=== PATIENT | male | born 1935 | race Caucasian/White ===

== ENCOUNTER 2019-05-17 18:02 | Inpatient (IN) | payer OTHER, MEDICAID ==
[~2019-05-17] VITALS: Ht 188 cm; Wt 62.1 kg
[2019-05-17 18:10] VITALS: BP_SYST 145
--- NOTE | 2019-05-17 18:27 | NUR ---
Patient to ER bed H2 to gown for evaluation. Side rails up.
--- NOTE | 2019-05-17 18:30 | NUR ---
Pt sent from [facility] for generalized weakness, pt is Dr Garcia patient, c/o bodyaches, skin pink and warm, cap refill <3, VSS , respirations even and unlabored, cap refill <3.
[2019-05-17 19:07] LABS: BASOPHILS % (AUTO) 0.6 % (0.0-2.0); EOSINOPHILS # (AUTO) 0.2 K/uL (0.0-0.4); EOSINOPHILS % (AUTO) 2.5 % (0.0-4.0); HEMATOCRIT 41.1 % (36-54); HEMOGLOBIN 13.8 g/dL (14.0-18.0); LYMPHOCYTES # (AUTO) 1.7 K/uL (1.0-5.5); LYMPHOCYTES % (AUTO) 22.9 % (20.5-51.5); MEAN CORPUSCULAR HEMOGLOBIN 30 pg (27-31); MEAN CORPUSCULAR HGB CONC 34 % (32-36); MEAN CORPUSCULAR VOLUME 90 fL (79.0-98.0); MONOCYTES # (AUTO) 0.5 K/uL (0.0-1.0); MONOCYTES % (AUTO) 6.9 % (1.7-9.3); NEUTROPHILS # (AUTO) 5.1 K/uL (1.8-7.7); NEUTROPHILS % (AUTO) 67.1 % (40.0-70.0); PLATELET COUNT (AUTO) 255 K/uL (130-430); RED BLOOD CELL COUNT(AUTO) 4.58 MIL/uL (4.2-6.2); RED CELL DISTRIBUTION WIDTH 15.1 % (9.0-15.0); WHITE BLOOD COUNT (AUTO) 7.5 K/uL (4.8-10.8)
[2019-05-17 19:11] LABS: ANION GAP 9 (5-15); CALCIUM 8.9 mg/dL (8.4-11.0); CHLORIDE 103 mmol/L (98-107); CREATININE 0.87 mg/dL (0.55-1.30); GLUCOSE 103 mg/dL (70-99); SODIUM SERUM 137 mmol/L (136-145); UREA NITROGEN, BLOOD 21 mg/dL (8-21)
[2019-05-17] MEDS ORDERED: NA P133E41 RC (19:11)
[2019-05-17] MEDS ORDERED: MELA3TAB64 PO (19:11)
[2019-05-17] MEDS ORDERED: DOCU-144 PO (19:11)
[2019-05-17] MEDS ORDERED: MOM PO (19:11)
[2019-05-17] MEDS ORDERED: LISI2.5T48 PO (19:11)
[2019-05-17] MEDS ORDERED: BISA10SU61 RC (19:11)
[2019-05-17] MEDS ORDERED: ACET-73 PO (19:11)
[2019-05-17] MEDS ORDERED: CYAN100T3 PO (19:11)
[2019-05-17] MEDS ORDERED: PEDI1TAB28 PO (19:11)
--- NOTE | 2019-05-17 19:11 | NUR ---
Medication reconciliation completed with information provided by patient . Any prior medication reconciliation on file was reviewed and corrected.
--- NOTE | 2019-05-17 19:14 | NUR ---
Report given to Arlen VELAZQUEZ
[2019-05-17 19:16] LABS: ALANINE AMINOTRANSFERASE 16 U/L (12-78); ALBUMIN 3.3 g/dL (3.4-4.8); ASPARTATE AMINOTRANSFERASE 15 U/L (10-37); TOTAL BILIRUBIN 0.5 mg/dL (0.0-1.0)
[2019-05-17 19:18] LABS: ALCOHOL, BLOOD < 3 mg/dL (<10)
--- NOTE | 2019-05-17 19:22 | NUR ---
Kristina Ross for straight catheter urine collection.
--- NOTE | 2019-05-17 19:35 | NUR ---
# 14 FR In and Out catheter with use of sterile technique. Immediate return of 30 ml dark yellow urine noted. Urine sample collected and sent to lab. Patient yelling, and agitated; attempting to bite. Rach Torres at bedside for assistance. Patient unable to toilet self, incontinent, unable to use urinal after 5 attempts and encouragement.
[2019-05-17 19:54] LABS: BILIRUBIN,URINE NEGATIVE (NEGATIVE); BLOOD, URINE 3+ (NEGATIVE); COLOR,URINE YELLOW (YELLOW); GLUCOSE,URINE NEGATIVE (NEGATIVE); KETONES,URINE NEGATIVE (NEGATIVE); LEUKOCYTE ESTERASE ,URINE NEGATIVE (NEGATIVE); NITRITE, URINE NEGATIVE (NEGATIVE); PH,URINE 6.5 (5.0-8.0); PROTEIN URINE 1+ (NEGATIVE); UROBILINOGEN,URINE 0.2 (0.2-1.0)
[2019-05-17 20:03] LABS: BARBITURATE, URINE NEGATIVE (NEG <=200); BENZODIAZEPINE, URINE NEGATIVE (NEG <=150); CANNABINOID, URINE NEGATIVE (NEG <=50); COCAINE, URINE NEGATIVE (NEG <=150); METHAMPHETAMINES SCREEN,URINE NEGATIVE (NEG <=500); OPIATE, URINE NEGATIVE (NEG <=100); PHENCYCLIDINE SCREEN,URINE NEGATIVE (NEG <=25); UR TRICYCLIC ANTIDEPRESSANTS NEGATIVE (NEG <=300); URINE AMPHETAMINE NEGATIVE (NEG <=500); URINE METHADONE NEGATIVE (NEG <=200); URINE OXYCODONE SCREEN NEGATIVE (NEG <=100); URINE PROPOXYPHENE SCREEN NEGATIVE (NEG <=300)
[2019-05-17 20:05] LABS: CLARITY/URINE HAZY (CLEAR)
[2019-05-17 20:06] LABS: BACTERIA,URINE FEW /HPF (None Seen); MUCUS,URINE None Seen /LPF (None Seen); RBC,URINE 20-50 /HPF (0-3); WBC,URINE 0-3 /HPF (0-3)
[2019-05-17] MEDS ORDERED: OLANZapine IntraMuscular 10 MG VIAL (FOR I.M. INJECTION ONLY) IM ONE (20:45)
--- NOTE | 2019-05-17 20:45 | NUR ---
Patient resting comfortably, shouting intermittently. Patient states he has no needs at this time. Will continue to follow up and monitor.
--- NOTE | 2019-05-17 21:28 | NUR ---
Orders received from Dr. Oliver, 121B, Report called to CAROLINE Jerome.
--- NOTE | 2019-05-17 21:30 | NUR ---
Patient will be admitted to care of Dr. Oliver. Admitted to MedSurg unit. Will go to room 121B. Belongings list completed. Summary report printed. Report will be given at bedside.
[2019-05-17] MEDS ORDERED: HALOPERIDOL LACTATE 5 MG/ML VIAL IM ONE (21:45)
[2019-05-17] MEDS ORDERED: HALOPERIDOL LACTATE 5 MG/ML VIAL ONE (21:55)
[2019-05-17 22:04] VITALS: BP_SYST 163
--- NOTE | 2019-05-17 22:04 | NUR ---
ADMISSION NOTE Received patient from ER via zachary, received telephone report from CAROLINE CRANE. Patient admitted with diagnosis of ENCEPHALOPATHY, DEHYDRATION. Patient oriented to hospital routine, call light, toileting and safety-patient verbalized understanding.
--- NOTE | 2019-05-17 22:30 | NUR ---
NOTES: took over care form nurse Queenie, admitted for generalized weakness from skilled facility. checked pt. able to communicate verbally, knows his name, reoriented where he is. moves all extremities, denies any pain nor discomfort, on room air. IV lock on rt. antecubital. checked skin intact except dry scabs on his chest, multiple areas. able to turn to sides. fall risk precautions, bed alarm on, call light within reach. pt. close to nurses station.
[2019-05-17] MEDS: D5NS 1,000 ML IV SCH (23:16)
--- NOTE | 2019-05-17 23:22 | NUR ---
NOTES: pt. was sleeping and got mad when lights were turn on, IVF started as ordered. Zyprexa im was given in ER per [facility] report. ptr. saying wants IV out. gauze kerlix around it for security. condition observed.
[2019-05-18 00:01] VITALS: BP_SYST 147
--- NOTE | 2019-05-18 00:30 | NUR ---
NOTES: pt. been bending his arm , IV keeps alarming. continue to monitor.
--- NOTE | 2019-05-18 03:30 | NUR ---
NOTES: pt. sleeping, no acute distress. IVF infusing. condition observed.
--- NOTE | 2019-05-18 05:27 | NUR ---
NOTES: pt. been sleeping, gets mad whenever awakened. IV alarming on and off since he is bending his arm. no acute distress. am lab draw as ordered.
--- NOTE | 2019-05-18 05:29 | NUR ---
CONSULTATION PAGED/CALLED Reason for Consultation: ACUTE AGITATION Person Who was Notified: TEE Consulting Physician: DR. FORDE; MANAGER GYN - DR. FLORENTINO Enameler Specialty: PSYCH Ordering Physician: DR. DUARTE
[2019-05-18 06:35] LABS: BASOPHILS % (AUTO) 0.5 % (0.0-2.0); EOSINOPHILS # (AUTO) 0.2 K/uL (0.0-0.4); EOSINOPHILS % (AUTO) 2.1 % (0.0-4.0); HEMATOCRIT 47.7 % (36-54); HEMOGLOBIN 15.9 g/dL (14.0-18.0); LYMPHOCYTES % (AUTO) 14.4 % (20.5-51.5); MEAN CORPUSCULAR HEMOGLOBIN 33 pg (27-31); MEAN CORPUSCULAR HGB CONC 33 % (32-36); MONOCYTES # (AUTO) 0.8 K/uL (0.0-1.0); MONOCYTES % (AUTO) 11.7 % (1.7-9.3); NEUTROPHILS % (AUTO) 71.3 % (40.0-70.0); PLATELET COUNT (AUTO) 109 K/uL (130-430); RED BLOOD CELL COUNT(AUTO) 4.82 MIL/uL (4.2-6.2); RED CELL DISTRIBUTION WIDTH 13.8 % (9.0-15.0); WHITE BLOOD COUNT (AUTO) 7.1 K/uL (4.8-10.8)
--- NOTE | 2019-05-18 06:45 | NUR ---
CLOSING NOTES; pt. still asleep. IV infusing, used urinal to void per D[employer]EL PLANT OPERATOR assistance. for further care and assistance. bed alarm on. fall risk precautions. call light within reach.
[2019-05-18 06:58] LABS: ALANINE AMINOTRANSFERASE 23 U/L (12-78); ALBUMIN 3.3 g/dL (3.4-4.8); ASPARTATE AMINOTRANSFERASE 31 U/L (10-37); CALCIUM 9.2 mg/dL (8.4-11.0); CHLORIDE 106 mmol/L (98-107); CREATININE 0.77 mg/dL (0.55-1.30); GLUCOSE 133 mg/dL (70-99); SODIUM SERUM 141 mmol/L (136-145); THYROID STIMULATING HORMONE 0.88 uIu/mL (0.36-3.74); TOTAL BILIRUBIN 1.3 mg/dL (0.0-1.0); UREA NITROGEN, BLOOD 18 mg/dL (8-21)
[2019-05-18 07:04] LABS: ANION GAP 11 (5-15)
[2019-05-18 07:31] LABS: MEAN CORPUSCULAR VOLUME 99 fL (79.0-98.0)
--- NOTE | 2019-05-18 07:33 | NUR ---
PATIENT IS RESTING, AROUSABLE, BUT CONFUSED. IV ON THE RIGHT FA, #20. PATIENT IS INSTRUCTED TO USE CALL LIGHT FOR NEEDS, BED LOCKED AT THE LOWEST POSITION WITH ALARM ON, WILL CONTINUE TO MONITOR.
--- NOTE | 2019-05-18 07:44 | NUR ---
Nutrition Update Cm Scale 15 noted. Pt admitted for Dehydration, Encephalopathy Diet: Mechanical Soft BMI: 17.6kg/m2 RD to follow per nutrition care standards.
[2019-05-18 08:00] VITALS: BP_SYST 142
[2019-05-18 08:28] LABS: CHOLESTEROL 121 mg/dL (<200); HDL CHOLESTEROL 37 mg/dL (>45); LDL CHOLESTEROL 78 mg/dL (<100); TRIGLYCERIDES 61 mg/dL (30-150)
[2019-05-18] MEDS ORDERED: OLANZapine 2.5 MG TABLET PO SCH (09:00)
--- NOTE | 2019-05-18 09:48 | NUR ---
Patient is resting, no signs of distress noted.
[2019-05-18] MEDS: D5NS 1,000 ML IV SCH (10:51)
[2019-05-18 11:06] VITALS: BP_SYST 128
--- NOTE | 2019-05-18 11:57 | NUR ---
IV site kinked at the right AC, as patient is unwilling to keep his arm straight. IV site started on Right FA, #22. Site intact and patent.
--- NOTE | 2019-05-18 12:50 | NUR ---
PATIENT FINISHES HIS LUNCH. TOLERATED WITHOUT DISTRESS.
--- NOTE | 2019-05-18 14:20 | NUR ---
Patient is turned and repositioned for comfort.
[2019-05-18 15:47] VITALS: BP_SYST 139
--- NOTE | 2019-05-18 16:40 | NUR ---
Patient is turned and repositioned for comfort.
--- NOTE | 2019-05-18 18:20 | NUR ---
Patient tolerates dinner without distress.
[2019-05-18 20:00] VITALS: BP_SYST 141
--- NOTE | 2019-05-18 20:00 | NUR ---
Initial note: Received report from nerissa RN. Patient is awake in bed, no acute distress. Alert and oriented to name only. IV site to right forearm is patent and benign, receiving IV fluids as ordered. Call light with patient. Bed locked in lowest position, side rails raised x3 with bed alarm on. Will continue with plan of care.
--- NOTE | 2019-05-18 23:11 | NUR ---
Rounds: Patient is awake, no acute distress. Even and unlabored breathing on room air. IV fluids infusing to right forearm IV site, no infiltration. Call light is with patient. Will continue to monitor.
[2019-05-19 00:18] VITALS: BP_SYST 150
[2019-05-19] MEDS: D5NS 1,000 ML IV SCH ×2 (00:22→14:14)
--- NOTE | 2019-05-19 02:24 | NUR ---
Rounds: Patient is resting in bed, no distress noted. Tolerating room air. IV fluids infusing as ordered, no infiltration noted. Call light with patient. Will continue monitoring.
--- NOTE | 2019-05-19 04:02 | NUR ---
Rounds: Patient is sleeping comfortably in bed. No acute distress. Even and unlabored respirations on room air. IV fluids infusing as ordered, no infiltration noted. Call light with patient. Will continue to monitor.
--- NOTE | 2019-05-19 06:36 | NUR ---
Closing note: Patient is resting in bed, no distress noted. Even and unlabored breathing on room air. IV site is patent and benign, receiving IV fluids as ordered. All needs met. Safety, fall precautions observed. Will endorse care to dayshift RN.
[2019-05-19 08:00] VITALS: BP_SYST 135
--- NOTE | 2019-05-19 08:00 | NUR ---
PATIENT IS RESTING, AROUSABLE, BUT CONFUSED. IV ON THE RIGHT FA, #20, AND RIGHT FA, #22. SL. PATIENT IS INSTRUCTED TO USE CALL LIGHT FOR NEEDS, BED LOCKED AT THE LOWEST POSITION WITH ALARM ON, WILL CONTINUE TO MONITOR.
[2019-05-19] MEDS ORDERED: LORazepam 1 MG TABLET PO PRN (08:15)
[2019-05-19] MEDS: OLANZapine 2.5 MG TABLET PO SCH ×2 (08:17→21:44)
--- NOTE | 2019-05-19 10:17 | NUR ---
PATIENT IS RESTING; HE'S TURNED AND REPOSITIONED FOR COMFORT.
[2019-05-19 12:00] VITALS: BP_SYST 137
--- NOTE | 2019-05-19 12:40 | NUR ---
PATIENT TOLERATES LUNCH WITHOUT DISTRESS.
--- NOTE | 2019-05-19 15:04 | NUR ---
PATIENT IS RESTING, CHEST RISING AND FALLING EVENLY, NO SIGNS OF DISTRESS NOTED.
[2019-05-19 16:14] VITALS: BP_SYST 119
--- NOTE | 2019-05-19 17:30 | NUR ---
PATIENT IS EATING DINNER, TOLERATES WITHOUT DISTRESS SUCH PAIN, NAUSEA, CHOKING.
--- NOTE | 2019-05-19 18:51 | NUR ---
Dr. Garcia is at bedside assessing patient.
--- NOTE | 2019-05-19 19:52 | NUR ---
Initial note: Received report from dayshift RN. Patient is awake, no distress noted. Alert and oriented to name only. Even and unlabored breathing on room air. IV fluids infusing well to right forearm IV site. Right AC IV site flushes well with NS, no infiltration noted. Call light is with patient. Safety, fall precautions in place. Will continue with plan of care.
[2019-05-19 20:00] VITALS: BP_SYST 122
--- NOTE | 2019-05-19 20:12 | NUR ---
CALLED : DR DUARTE CALLED AND NOTIFIED THAT ORDERED FEW LABS FOR TONIGHT , MD ORDERED TO CHANGE ALL LABS FOR TOMORROW MORNING .
--- NOTE | 2019-05-19 22:36 | NUR ---
Rounds: Patient is awake in bed, no acute distress noted. Occasionally becomes irritated by the other patients in the room. Tolerating room air. IV fluids infusing as ordered. Call light is with patient. Safety, fall precautions in place. Will continue monitoring.
[2019-05-20 00:34] VITALS: BP_SYST 131
--- NOTE | 2019-05-20 01:19 | NUR ---
Rounds: Patient is sleeping comfortably in bed. No acute distress. Tolerating room air. IV fluids infusing well, no infiltration at the site. Call light with patient. Safety, fall precautions in place. Will continue to monitor.
[2019-05-20] MEDS: D5NS 1,000 ML IV SCH ×2 (03:28→16:10)
--- NOTE | 2019-05-20 04:07 | NUR ---
Rounds: Patient is awake, occasionally yells at neighboring patient. No acute distress otherwise. IV fluids infusing as ordered. Tolerating room air. Call light with patient. Safety, fall precautions in place. Will continue monitoring.
--- NOTE | 2019-05-20 06:45 | NUR ---
Closing note: Patient is resting in bed, no acute distress. Tolerating room air. IV fluids infusing as ordered to right forearm IV site. SCD's in place. All needs met. Safety and fall precautions maintained. Hourly rounding performed throughout shift. Will endorse care to dayshift RN.
[2019-05-20 07:10] LABS: ANION GAP 6 (5-15); CALCIUM 8.4 mg/dL (8.4-11.0); CHLORIDE 111 mmol/L (98-107); CREATININE 0.89 mg/dL (0.55-1.30); GLUCOSE 91 mg/dL (70-99); SODIUM SERUM 143 mmol/L (136-145); UREA NITROGEN, BLOOD 18 mg/dL (8-21)
[2019-05-20 07:12] LABS: BASOPHILS % (AUTO) 0.4 % (0.0-2.0); EOSINOPHILS # (AUTO) 0.2 K/uL (0.0-0.4); EOSINOPHILS % (AUTO) 2.5 % (0.0-4.0); HEMATOCRIT 36.8 % (36-54); HEMOGLOBIN 12.3 g/dL (14.0-18.0); LYMPHOCYTES # (AUTO) 1.4 K/uL (1.0-5.5); LYMPHOCYTES % (AUTO) 19.8 % (20.5-51.5); MEAN CORPUSCULAR HEMOGLOBIN 30 pg (27-31); MEAN CORPUSCULAR HGB CONC 33 % (32-36); MEAN CORPUSCULAR VOLUME 90 fL (79.0-98.0); MONOCYTES # (AUTO) 0.6 K/uL (0.0-1.0); MONOCYTES % (AUTO) 8.4 % (1.7-9.3); NEUTROPHILS # (AUTO) 4.9 K/uL (1.8-7.7); NEUTROPHILS % (AUTO) 68.9 % (40.0-70.0); PLATELET COUNT (AUTO) 221 K/uL (130-430); RED BLOOD CELL COUNT(AUTO) 4.08 MIL/uL (4.2-6.2); WHITE BLOOD COUNT (AUTO) 7.1 K/uL (4.8-10.8)
--- NOTE | 2019-05-20 07:20 | NUR ---
OPENING NOTES: RECEIVED PATIENT FROM ORTHOPEDIC NURSE NURSE. PATIENT IS ASLEEP IN BED. NO SIGNS OF DISTRESS OR SHORTNESS OF BREATH NOTED. PATIENT IS TOLERATING OXYGEN AT ROOM AIR. IV SITE IS PATENT WITH NO SIGNS OF INFILTRATION AND RUNNING FLUIDS ORDERED BY MD. PATIENT IN STABLE CONDITION. SAFETY, FALL AND ASPIRATION PRECAUTIONS ARE IN PLACE. BED LOCKED IN LOWEST POSITION WITH CALL LIGHT IN REACH. WILL CONTINUE TO MONITOR PATIENT FOR ANY CHANGES. Addendum: 05/20/19 at 1129 by Irma Mcclure RN PT HAS BILATERAL SCD'S IN PLACE.
[2019-05-20 08:00] VITALS: BP_SYST 160
[2019-05-20] MEDS ORDERED: cloNIDine HCL 0.1 MG TABLET PO PRN (08:30)
[2019-05-20] MEDS: OLANZapine 2.5 MG TABLET PO SCH (09:05)
--- NOTE | 2019-05-20 10:05 | NUR ---
MEDICATION REASSESSMENT PATIENT'S BLOOD PRESSURE IS NOW 142/78, PULSE 76, PT IN STABLE CONDITION, WILL CONTINUE TO MONITOR PT FOR ANY CHANGES, PT ASYMPTOMATIC.
--- NOTE | 2019-05-20 10:10 | NUR ---
RN ROUNDS: PATIENT IS ASLEEP IN BED. NO SIGNS OF DISTRESS OR SHORTNESS OF BREATH NOTED. PATIENT IN STABLE CONDITION. WILL CONTINUE TO MONITOR PATIENT FOR ANY CHANGES.
--- NOTE | 2019-05-20 12:30 | NUR ---
RN ROUNDS: PATIENT IS ASLEEP IN BED. NO SIGNS OF DISTRESS OR SHORTNESS OF BREATH NOTED. IV SITE IS PATENT WITH NO SIGNS OF INFILTRATION AND FLUIDS ARE RUNNING ORDERED. PATIENT IN STABLE CONDITION. WILL CONTINUE TO MONITOR PATIENT FOR ANY CHANGES.
[2019-05-20 12:45] VITALS: BP_SYST 142
--- NOTE | 2019-05-20 13:29 | NUR ---
Dietitian Recommendations *Consider swallow eval. *For the meantime, recommend: Pureed diet w/ NTL. ONS Ensure Enlive comes standard w/ diet and provides 1050 kcal and 60 gm protein daily. *Consider Megace to stimulate appetite. Please see Nutritional Assessment for details. GRAHAM SERRATO Addendum: 05/20/19 at [address] GRAHAM s/w CAROLINE Valentin for diet recommendation. RN to put order in. 05/20/19 1334.
--- NOTE | 2019-05-20 14:20 | NUR ---
Communication Coordinator Note EDGE BANDING OFF BEARER received a DC Planning to [facility] if Bed Available order. EDGE BANDING OFF BEARER noted there is no 5150 hold in the chart. Phoned Bettye at [facility], . They can only accept patient without a hold if patient can sign consent. Patient is only AO x 1. Also, [place] has no beds available at this time. One may become available tonight, but has two patients waiting on it already. Notified nurse Barbie and Key GOTTLIEB.
--- NOTE | 2019-05-20 14:25 | NUR ---
ROUNDS PT IN STABLE CONDITION, PT WATCHING TV, WILL CONTINUE TO MONITOR PT FOR ANY CHANGES, PT HAS NO S/S OF DISTRESS OR SOB NOTED. WILL CONTINUE TO MONITOR PT FOR ANY CHANGES.
--- NOTE | 2019-05-20 14:47 | NUR ---
Discharge Planning Received the order for DC back to SNF. Phoned [facility], p [phone] f [phone]. Patient to return to bed 113A. Faxed patient information. Phoned [facility] ambulance, . Arranged BLS transport for 4:30 pm.
[2019-05-20 15:45] VITALS: BP_SYST 138
--- NOTE | 2019-05-20 16:08 | NUR ---
REPORT REPORT GIVEN TO EMILIANO [facility], p [phone], PT GOING TO ROOM 113A. NO NEXT OF KIN ON FACE SHEET OR PAPERWORK RECEIVED FROM SNF, PT CONFUSED AND UNABLE TO MAKE HIM AWARE. CHARGE NURSE MADE AWARE.
[2019-05-20 16:35] VITALS: BP_SYST 132
--- NOTE | 2019-05-20 16:40 | NUR ---
PT TRANSFERRED Report given to desere. Transfer packet with Transfer Orders and Medication Reconciliation form given to EMT with report. Exitcare provided. [facility] ID band removed, replaced with ID band with pt's name and . IV catheter removed, intact and dressing applied, no active bleeding. All belongings sent with patient. Patient left floor via gurney escorted by EMT in no distress.
== END 2019-05-20 16:40 | DRG 641 ==
LOC: SED 18:02 → SMU 21:23
PROVIDERS: ADMIT Internal Medicine; ATTEND Internal Medicine
DX: E86.0 Dehydration (principal); G93.40 Encephalopathy, unspecified; F03.90 Unspecified dementia, unspecified severity, without behavioral disturbance, psychotic disturbance, mood disturbance, and anxiety; I10 Essential (primary) hypertension; F29 Unspecified psychosis not due to a substance or known physiological condition
CPT/HCPCS: 36415; 80048; 80053; 80061; 80307; 81000-TC; 83605; 84443-TC; 85025; 87040-TC; 87081; 93005; 99285; G0482; J1630; J3490; J7042